=== PATIENT | female | born 1955 | race Caucasian/White ===

== ENCOUNTER 2018-01-02 08:23 | Day surgery (SDC) | payer BC ==
[~2018-01-02 08:23] MED LIST: ALEN10; ERGO400 PO; IRON150C; MECL25 PO; OMEP20ER PO; OXYACE5T PO; POTCHL10ER; PROBIOTIC1 EAC3; PROLIA60 MG/1 ML SQ; PROM25 PO; RXOXYACE PO; ZENPEP DR 25,01 EACH PO; ZESTORETIC 20-121 EA PO
== END 2018-01-02 23:03 | disposition home or self-care (01) ==
LOC: MOI US 08:23
PROC: 0HBU3ZX Excision of Left Breast, Percutaneous Approach, Diagnostic (ICD-10-PCS; principal; 2018-01-02)
DX: C50.912 Malignant neoplasm of unspecified site of left female breast (principal); Z17.0 Estrogen receptor positive status [ER+]
CPT/HCPCS: 19083; 77065; 88305; 88360; A4648; G0279

== ENCOUNTER 2018-01-23 08:39 | Day surgery (SDC) | payer BC ==
[~2018-01-23 08:39] MED LIST changes: -POTCHL10ER; +POTCHL10ER PO; -PROBIOTIC1 EAC3; +PROBIOTIC1 EAC3 PO; -ZENPEP DR 25,01 EACH PO; +ZENPEP PO
[2018-01-26] MEDS ORDERED: RIFA550T2 (14:07)
[2018-01-26] MEDS ORDERED: CALCIUM PLUS D3 PO (14:08)
[2018-01-26] MEDS ORDERED: CHOL10002 PO (14:09)
== END 2018-01-23 23:38 | disposition home or self-care (01) ==
LOC: MOI US 08:39
PROC: BH41ZZZ Ultrasonography of Left Breast (ICD-10-PCS; principal; 2018-01-23)
DX: C50.812 Malignant neoplasm of overlapping sites of left female breast (principal); Z17.0 Estrogen receptor positive status [ER+]
CPT/HCPCS: 19285; 77065

== ENCOUNTER 2018-01-30 08:15 | Day surgery (SDC) | payer BC ==
[~2018-01-30] VITALS: Ht 162.6 cm; Wt 49.0 kg
[~2018-01-30 08:15] MED LIST changes: +CALCIUM PLUS D3 PO; +CHOL10002 PO; +RIFA550T2
== END 2018-01-30 14:20 | disposition home or self-care (01) ==
LOC: NM 08:15 → ORSCMMR 08:15 → NM 09:00 → ORSCMMR 11:03 → NM 14:20
PROVIDERS: Surgery
PROC: 07B60ZX Excision of Left Axillary Lymphatic, Open Approach, Diagnostic (ICD-10-PCS; principal; 2018-01-30 11:00)
PROC: 0HBU0ZZ Excision of Left Breast, Open Approach (ICD-10-PCS; principal; 2018-01-30 11:00)
DX: C50.812 Malignant neoplasm of overlapping sites of left female breast (principal); Z17.0 Estrogen receptor positive status [ER+]; D36.0 Benign neoplasm of lymph nodes; I10 Essential (primary) hypertension; Z79.899 Other long term (current) drug therapy
CPT/HCPCS: 38792; 76098; 88307; 88341; 88342; A9520; J0690; J1100; J2250; J2405; J3010; J7120; Q9968

== ENCOUNTER → 2018-08-05 | Outpatient (CLI) | payer BC | END | disposition home or self-care (01) | LOC: PLD 08:07 → LAB SHORT 08:07 | DX: D48.5 Neoplasm of uncertain behavior of skin (principal) | CPT/HCPCS: 88305 ==

== ENCOUNTER → 2018-08-13 | Outpatient (CLI) | payer BC | END | disposition home or self-care (01) | LOC: PLD 07:13 → LAB SHORT 07:13 | DX: L57.0 Actinic keratosis (principal) | CPT/HCPCS: 88305 ==

== ENCOUNTER → 2019-01-27 | Outpatient (CLI) | payer BC | END | disposition home or self-care (01) | LOC: PLD 08:03 → LAB SHORT 08:03 | DX: L57.0 Actinic keratosis (principal) | CPT/HCPCS: 88305 ==

== ENCOUNTER → 2019-12-14 | Outpatient (CLI) | payer MEDICARE, BC ==
[2019-12-15 15:09] LABS: HPV 16 Negative (Negative); HPV 18 Negative (Negative); HPV OTHER HR TYPES Negative (Negative)
== END | disposition home or self-care (01) ==
LOC: LAB SHORT 12:19 → LAB 12:19
PROVIDERS: Obstetrics & Gynecology
DX: Z01.419 Encounter for gynecological examination (general) (routine) without abnormal findings (principal)
CPT/HCPCS: 87624; G0123

== ENCOUNTER 2022-02-18 08:51 | Day surgery (SDC) | payer MEDICARE, BC ==
[~2022-02-18] VITALS: Ht 162.6 cm; Wt 47.8 kg
[2022-02-18] MEDS ORDERED: ANASTROZOLE1 M7 (10:07)
== END 2022-02-18 11:26 | disposition home or self-care (01) ==
LOC: ORSCSDS 08:51
PROVIDERS: Internal Medicine Gastroenterology
PROC: 0DBL8ZX Excision of Transverse Colon, Via Natural or Artificial Opening Endoscopic, Diagnostic (ICD-10-PCS; principal; 2022-02-18 10:15)
PROC: 0DBK8ZX Excision of Ascending Colon, Via Natural or Artificial Opening Endoscopic, Diagnostic (ICD-10-PCS; principal; 2022-02-18 10:15)
PROC: 0DBE8ZX Excision of Large Intestine, Via Natural or Artificial Opening Endoscopic, Diagnostic (ICD-10-PCS; principal; 2022-02-18 10:15)
DX: R19.4 Change in bowel habit (principal); D12.2 Benign neoplasm of ascending colon; Z80.0 Family history of malignant neoplasm of digestive organs; Z86.010 Personal history of colon polyps; Z85.22 Personal history of malignant neoplasm of nasal cavities, middle ear, and accessory sinuses; Z85.3 Personal history of malignant neoplasm of breast; K57.30 Diverticulosis of large intestine without perforation or abscess without bleeding; D69.6 Thrombocytopenia, unspecified; Z79.899 Other long term (current) drug therapy
CPT/HCPCS: 88305; J2704

== ENCOUNTER 2022-04-12 12:31 | Emergency (ER) | payer MEDICARE, BC ==
[~2022-04-12] VITALS: Ht 162.6 cm; Wt 47.6 kg
[~2022-04-12 12:31] MED LIST changes: +ANASTROZOLE1 M7
== END 2022-04-12 15:10 | disposition home or self-care (01) ==
LOC: ER 12:31
DX: T18.128A Food in esophagus causing other injury, initial encounter (principal); I10 Essential (primary) hypertension; Z79.899 Other long term (current) drug therapy; W45.8XXA Other foreign body or object entering through skin, initial encounter
CPT/HCPCS: 99283

== ENCOUNTER 2022-04-29 11:00 | Day surgery (SDC) | payer MEDICARE, BC ==
[~2022-04-29] VITALS: Ht 162.6 cm; Wt 49.1 kg
== END 2022-04-29 13:12 | disposition home or self-care (01) ==
LOC: ORSCSDS 11:00
PROVIDERS: Internal Medicine Gastroenterology
PROC: 0DB58ZX Excision of Esophagus, Via Natural or Artificial Opening Endoscopic, Diagnostic (ICD-10-PCS; principal; 2022-04-29 12:15)
PROC: 0D758ZZ Dilation of Esophagus, Via Natural or Artificial Opening Endoscopic (ICD-10-PCS; principal; 2022-04-29 12:15)
DX: R13.10 Dysphagia, unspecified (principal); K29.70 Gastritis, unspecified, without bleeding; K31.7 Polyp of stomach and duodenum; Z85.048 Personal history of other malignant neoplasm of rectum, rectosigmoid junction, and anus; Z85.3 Personal history of malignant neoplasm of breast; K22.2 Esophageal obstruction; K44.9 Diaphragmatic hernia without obstruction or gangrene; E78.5 Hyperlipidemia, unspecified; I10 Essential (primary) hypertension; Z79.899 Other long term (current) drug therapy
CPT/HCPCS: 88305; 88342; J0330; J0461; J2405; J2704; J7120

== ENCOUNTER 2022-07-03 09:28 | Day surgery (SDC) | payer MEDICARE, BC ==
[~2022-07-03] VITALS: Ht 162.6 cm; Wt 48.1 kg
== END 2022-07-03 11:12 | disposition home or self-care (01) ==
LOC: ORSCSDS 09:28
PROVIDERS: Internal Medicine Gastroenterology
PROC: 0DB58ZX Excision of Esophagus, Via Natural or Artificial Opening Endoscopic, Diagnostic (ICD-10-PCS; principal; 2022-07-03 10:45)
DX: K21.9 Gastro-esophageal reflux disease without esophagitis (principal); K22.70 Barrett's esophagus without dysplasia; I10 Essential (primary) hypertension; E78.5 Hyperlipidemia, unspecified; Z79.899 Other long term (current) drug therapy; I73.00 Raynaud's syndrome without gangrene; Z85.3 Personal history of malignant neoplasm of breast; Z17.0 Estrogen receptor positive status [ER+]
CPT/HCPCS: 88305; J2704; J7120

== ENCOUNTER 2023-08-09 10:19 | Emergency (ER) | payer MEDICARE, BC ==
[~2023-08-09] VITALS: Ht 162.6 cm; Wt 48.1 kg
[~2023-08-09 10:19] MED LIST changes: -CHOL10002 PO; +VITAMIN D31250 MC2
[2023-08-09 11:27] LABS: BASOPHILS ABSOLUTE AUTO 0.01 K/mm3 (0.00-0.23); BASOPHILS PERCENT AUTO 0 % (0-2); EOSINOPHILS ABSOLUTE AUTO 0.09 K/mm3 (0.00-0.68); EOSINOPHILS PERCENT AUTO 3 % (0-6); Hematocrit 38.3 % (33.0-51.0); Hemoglobin 12.5 g/dL (11.5-16.0); IMMATURE GRAN ABSOLUTE AUTO 0.01 K/mm3 (0.00-0.10); IMMATURE GRAN PERCENT AUTO 0 % (0-1); LYMPHOCYTES ABSOLUTE AUTO 0.72 K/mm3 (0.84-5.20); LYMPHOCYTES PERCENT AUTO 22 % (21-46); MONOCYTES ABSOLUTE AUTO 0.65 K/mm3 (0.16-1.47); MONOCYTES PERCENT AUTO 20 % (4-13); Mean Corpuscular HGB 28.2 pg (26.0-34.0); Mean Corpuscular HGB Conc 32.6 g/dL (31.5-36.5); Mean Corpuscular Volume 87 fL (80-100); Mean Platelet Volume 10.1 fL (9.1-12.4); NEUTROPHILS ABSOLUTE AUTO 1.82 K/mm3 (1.96-9.15); NEUTROPHILS PERCENT AUTO 55 % (41-73); Platelet Count 148 K/mm3 (150-400); RDW Coefficient Variation 13.7 % (11.7-14.2); RDW Standard Deviation 42.9 fL (35.1-46.3); Red Blood Cell Count 4.43 M/mm3 (3.80-5.20)
[2023-08-09 11:35] LABS: Influenza A, PCR NEGATIVE (NEGATIVE); Influenza B, PCR NEGATIVE (NEGATIVE); Resp Syncytial Virus, PCR NEGATIVE (NEGATIVE); SARS-Cov-2 (COVID-19) PCR, MMC NEGATIVE (NEGATIVE)
[2023-08-09 12:05] LABS: Albumin, Blood 3.5 g/dL (3.4-5.0); Albumin/Globulin Ratio 0.9 (0.8-1.8); Bilirubin, Total 0.4 mg/dL (0.1-1.0); Bun/Creatinine Ratio 20.7 (12.0-20.0); Calcium, Blood 8.6 mg/dL (8.5-10.1); Creatinine, Blood 0.68 mg/dL (0.40-1.00); Globulin, Blood 3.9 g/dL (2.2-4.0); Potassium, Blood 3.5 mmol/L (3.5-5.5); Thyroid Stimulating Hormone 0.725 uIU/mL (0.360-4.800); Total Protein, Blood 7.4 g/dL (6.4-8.2)
[2023-08-09] MEDS ORDERED: [UNRECOGNIZED DRUG - OTHER] (15:44)
[2023-08-09] MEDS ORDERED: LOPE2C (15:45)
[2023-08-09] MEDS ORDERED: FAMO20 (15:46)
[2023-08-09] MEDS ORDERED: OMEP20ER PO (15:47)
[2023-08-09] MEDS ORDERED: PROLIA60 MG/1 ML (15:47)
[2023-08-09 16:30] VITALS: BP 187/91
[2023-08-09] MEDS ORDERED: POLYMYXIN B-TMP10 ML LEFTEYE (16:51)
== END 2023-08-09 16:54 | disposition home or self-care (01) ==
LOC: ER 10:19
PROVIDERS: Student in an Organized Health Care Education/Training Program
DX: R00.2 Palpitations (principal); H04.552 Acquired stenosis of left nasolacrimal duct; I10 Essential (primary) hypertension; Z79.899 Other long term (current) drug therapy
CPT/HCPCS: 0241U; 71046; 80053; 84443; 84484; 85025; 93005; 93010; 99285-25